=== PATIENT | male | born 1980 ===

== ENCOUNTER 2021-06-15 20:13 | Emergency (ER) | payer BC ==
[2021-06-15 20:27] VITALS: BP 142/97; PULSE 59
== END 2021-06-15 21:00 | disposition home or self-care (01) ==
LOC: FB.ED 20:13
DX: S60.221A Contusion of right hand, initial encounter (principal); W23.1XXA Caught, crushed, jammed, or pinched between stationary objects, initial encounter
CPT/HCPCS: 73130-RT; 99282; 99283-25